=== PATIENT | female | born 1945 | race Caucasian/White ===

== ENCOUNTER 2018-09-13 11:09 | Emergency (ER) | payer MEDICARE ==
[2018-09-13 11:26] VITALS: BP 147/73
--- NOTE | 2018-09-13 11:47 | UC ---
Throat Pain/Nasal Eran HPI - HPI Summary HPI Summary: 73-year-old female comes in with a chief complaint of bilateral eye discharge and redness and sinus congestion with sore throat for the last 2 days. Patient reports this is what happens when she gets a sinus infection. Denies any history of environmental allergies. Throat pain is worse when she swallows. The eyes get better when she cleans them off. No fevers or chills. No cough or chest congestion. - History of Current Complaint Chief Complaint: UCEye Stated Complaint: EYE/SINUSES Time Seen by Provider: 09/13/18 11:30 Pain Intensity: 0 - Allergies/Home Medications Allergies/Adverse Reactions: Allergies Allergy/AdvReac Type Severity Reaction Status Date / Time No Known Allergies Allergy Verified 09/13/18 11:26 Home Medications: Home Medications Escitalopram * [Lexapro *] 20 mg PO DAILY 09/13/18 [History Confirmed 09/13/18] Omeprazole 20 mg PO DAILY 09/13/18 [History Confirmed 09/13/18] Rosuvastatin Calcium 10 mg PO DAILY 09/13/18 [History Confirmed 09/13/18] PMH/Surg Hx/FS Hx/Imm Hx Previously Healthy: Yes Endocrine History: Dyslipidemia GI/ History: Gastroesophageal Reflux - Surgical History Surgical History: Yes Surgery Procedure, Year, and Place: appe, hysterectomy, C-sections, cataract - Family History Known Family History: Positive: Non-Contributory - Social History Alcohol Use: Occasionally Substance Use Type: None Smoking Status (MU): Former Smoker When Did the Patient Quit Smoking/Using Tobacco: 40 yrs ago Review of Systems All Other Systems Reviewed And Are Negative: Yes Constitutional: Positive: Negative Skin: Positive: Negative Eyes: Positive: Drainage, Eye Redness ENT: Positive: Sore Throat, Nasal Discharge, Sinus Congestion, Sinus Pain/ Tenderness Respiratory: Positive: Negative Cardiovascular: Positive: Negative Gastrointestinal: Positive: Negative Motor: Positive: Negative Neurovascular: Positive: Negative Musculoskeletal: Positive: Negative Neurological: Positive: Negative Psychological: Positive: Negative Is Patient Immunocompromised?: No Physical Exam Triage Information Reviewed: Yes Appearance: Well-Appearing, No Pain Distress, Well-Nourished Vital Signs: Initial Vital Signs Temp 99.3 F 09/13/18 11:21 Pulse 72 09/13/18 11:21 Resp 14 09/13/18 11:21 BP 147/73 09/13/18 11:21 Pulse Ox 99 09/13/18 11:21 Vital Signs Reviewed: Yes Eyes: Positive: Conjunctiva Inflamed, Discharge ENT: Positive: Pharyngeal erythema, Nasal congestion, Nasal drainage, TMs normal Neck: Positive: Supple Respiratory: Positive: Lungs clear, Normal breath sounds, No respiratory distress Cardiovascular: Positive: RRR Musculoskeletal Exam: Normal Musculoskeletal: Positive: Strength Intact, ROM Intact Neurological Exam: Normal Neurological: Positive: Alert, Muscle Tone Normal Psychological Exam: Normal Psychological: Positive: Normal Response To Family, Age Appropriate Behavior Skin Exam: Normal Throat Pain/Nasal Course/Dx - Course Course Of Treatment: DISCUSSED VIRAL VERSES BACTERIAL INFECTION AND THE ROLE OF ANTIBIOTICS. THE PATIENT PREFERS TO BE ON ANTIBIOTICS AT THIS TIME. - Differential Dx/Diagnosis Provider Diagnosis: Sinusitis, Conjunctivitis of both eyes Discharge - Sign-Out/Discharge Documenting (check all that apply): Patient Departure All imaging exams completed and their final reports reviewed: No Studies - Discharge Plan Condition: Stable Disposition: HOME Prescriptions: Amoxicillin PO (*) [Amoxicillin 875 MG (*)] 875 mg PO BID #20 tab Tobramycin 0.3% OPHTH.KASSANDRA* 1 drop BOTH EYES Q4H #1 btl Patient Education Materials: Sinusitis (ED), Conjunctivitis (ED) Referrals: Erin RICKS,Aliza Schulz [Primary Care Provider] - Additional Instructions: FOLLOW UP WITH YOUR DOCTOR IF NOT COMPLETELY IMPROVED. GET RECHECKED SOONER IF YOUR CONDITION WORSENS OR ANY QUESTIONS OR CONCERNS. - Billing Disposition and Condition Condition: STABLE Disposition: Home
== END 2018-09-13 11:55 | disposition home or self-care (01) ==
LOC: EDUNIT# → UCEAST 11:09
DX: H11.9 Unspecified disorder of conjunctiva (principal); J32.9 Chronic sinusitis, unspecified; E78.5 Hyperlipidemia, unspecified; K21.9 Gastro-esophageal reflux disease without esophagitis; Z87.891 Personal history of nicotine dependence
CPT/HCPCS: 99212; G0463

== ENCOUNTER 2018-09-29 16:46 | Emergency (ER) | payer MEDICARE ==
[2018-09-29 18:19] VITALS: BP 127/73
--- NOTE | 2018-09-29 18:23 | UC ---
Skin Complaint HPI - HPI Summary HPI Summary: 73 yo female presents with wound to left simental. She tells me that 17 days ago she thinks she was bitten by a bug to the area. Later that day she noticed a small red bump to the area and applied antibiotic ointment. A few days later she was itching it and admits to "picking" at it and it started to bleed. Over the next few days developed a scab that she continued to pick at. She was also outdoors a lot and working outside. About 4 days ago noticed some surrounding redness and had mild pain, but then took an anbx for a tooth infection and since that time the wound has significantly improved. Now she has a fleshy/ hypopigmented area at the site. No pain or drainage. - History of Current Complaint Chief Complaint: UCSkin Time Seen by Provider: 09/29/18 18:23 Stated Complaint: BUG BITE Hx Obtained From: Patient Onset/Duration: Gradual Onset Onset Severity: Mild Current Severity: None Pain Intensity: 0 - Allergy/Home Medications Allergies/Adverse Reactions: Allergies Allergy/AdvReac Type Severity Reaction Status Date / Time No Known Allergies Allergy Verified 09/29/18 18:19 PMH/Surg Hx/FS Hx/Imm Hx Endocrine History: Dyslipidemia GI/ History: Gastroesophageal Reflux Psychological History: Anxiety - Surgical History Surgical History: Yes Surgery Procedure, Year, and Place: appe, hysterectomy, C-sections, cataract - Family History Known Family History: Positive: Non-Contributory - Social History Occupation: Retired Lives: With Family Alcohol Use: Occasionally Substance Use Type: None Smoking Status (MU): Former Smoker When Did the Patient Quit Smoking/Using Tobacco: 40 yrs ago Review of Systems All Other Systems Reviewed And Are Negative: Yes Constitutional: Positive: Negative Skin: Positive: Other - Wound left simental Respiratory: Positive: Negative Cardiovascular: Positive: Negative Neurovascular: Positive: Negative Neurological: Positive: Negative Psychological: Positive: Negative Physical Exam - Summary Physical Exam Summary: GENERAL: NAD. WDWN. No pain distress. SKIN: LEFT anterior simental with 5mm diameter healing wound that is 2-3mm raised with sandpaper like texture. Mixed flesh colored with hypopigmentation. No surrounding erythema or edema. No ulceration. NTTP. No streaking, bleeding, or drainage. CHEST: No accessory muscle use. Breathing comfortably and in no distress. CV: Pulses intact. Cap refill <2seconds NEURO: Alert. PSYCH: Age appropriate behavior. Vital Signs: Initial Vital Signs Temp 97.4 F 09/29/18 18:15 Pulse 78 09/29/18 18:15 Resp 16 09/29/18 18:15 BP 127/73 09/29/18 18:15 Pulse Ox 97 09/29/18 18:15 Course/Dx - Course Course Of Treatment: Suspect keloid given the picking at the wound, sun exposure, and possible recent infection at the site. Advised to apply a small amount of antibiotic ointment and cover the site with a band-aid for 4-5 days and to leave it alone. Try to avoid sun exposure to the area until healed more. - Diagnoses Provider Diagnosis: Keloid scar Discharge - Sign-Out/Discharge Documenting (check all that apply): Patient Departure All imaging exams completed and their final reports reviewed: No Studies - Discharge Plan Condition: Stable Disposition: HOME Patient Education Materials: Chronic Wound Care (ED) Referrals: Erin RICKS,Aliza Schulz [Primary Care Provider] - Additional Instructions: If you develop a fever, shortness of breath, chest pain, new or worsening symptoms - please call your PCP or go to the ED immediately. Apply bacitracin ointment once a day and cover with a band-aid for 4-5 days. Do not pick or scrape the area. - Billing Disposition and Condition Condition: STABLE Disposition: Home
== END 2018-09-29 18:37 | disposition home or self-care (01) ==
LOC: UCEAST 16:46
DX: L91.0 Hypertrophic scar (principal); E78.5 Hyperlipidemia, unspecified; K21.9 Gastro-esophageal reflux disease without esophagitis; F41.9 Anxiety disorder, unspecified; Z87.891 Personal history of nicotine dependence
CPT/HCPCS: 99211; G0463

== ENCOUNTER 2018-10-16 09:06 | Emergency (ER) | payer MEDICARE ==
[2018-10-16 09:23] VITALS: BP 154/89
--- NOTE | 2018-10-16 09:43 | UC ---
Skin Complaint HPI - HPI Summary HPI Summary: percy awoke in night last night with itchy pain behind R ear. has progressed to achey/itchy pain R scalp area, she is sure it's shingles as she has had this in the past with same symptoms. no meds for pain thus far. she has been under stress lately but has not felt ill - History of Current Complaint Chief Complaint: UCSkin Time Seen by Provider: 10/16/18 09:13 Stated Complaint: SKIN COMPLAINT Hx Obtained From: Patient ?: No Onset/Duration: Sudden Onset Onset Severity: Mild Current Severity: Mild Pain Intensity: 4 Location: Discrete Character: Pruritus, Redness, Raised, Painful Aggravating Factor(s): Touch Alleviating Factor(s): Nothing Associated Signs & Symptoms: Positive: Tenderness. Negative: Nausea, Vomiting, Fever, Chills, Drainage Similar Episode/Dx as: shingles - Allergy/Home Medications Allergies/Adverse Reactions: Allergies Allergy/AdvReac Type Severity Reaction Status Date / Time No Known Allergies Allergy Verified 10/16/18 09:16 PMH/Surg Hx/FS Hx/Imm Hx Previously Healthy: Yes Endocrine History: Dyslipidemia GI/ History: Gastroesophageal Reflux Psychological History: Depression - Surgical History Surgical History: Yes Surgery Procedure, Year, and Place: appe, hysterectomy, C-sections, cataract - Family History Known Family History: Positive: Non-Contributory - Social History Occupation: Retired Lives: Alone Alcohol Use: Rare Substance Use Type: None Smoking Status (MU): Former Smoker When Did the Patient Quit Smoking/Using Tobacco: 40 yrs ago Review of Systems All Other Systems Reviewed And Are Negative: Yes Constitutional: Positive: Negative Skin: Positive: Rash Eyes: Positive: Negative. Negative: Blurred Vision, Drainage, Eye Redness, Photophobia ENT: Positive: Negative. Negative: Ear Ache Respiratory: Positive: Negative Cardiovascular: Positive: Negative Neurological: Positive: Negative. Negative: Headache Psychological: Positive: Negative Is Patient Immunocompromised?: No Physical Exam Triage Information Reviewed: Yes Appearance: Well-Appearing, No Pain Distress, Well-Nourished Vital Signs: Initial Vital Signs Temp 97.9 F 10/16/18 09:16 Pulse 70 10/16/18 09:16 Resp 16 10/16/18 09:16 BP 154/89 10/16/18 09:16 Pulse Ox 97 10/16/18 09:16 Vital Signs Reviewed: Yes Eye Exam: Normal Eyes: Positive: Conjunctiva Clear. Negative: Discharge ENT Exam: Normal ENT: Positive: Pharynx normal, TMs normal Neck: Positive: No Lymphadenopathy Respiratory Exam: Normal Cardiovascular Exam: Normal Neurological Exam: Normal Psychological Exam: Normal Skin: Positive: Other - erythemic, swollen, tender area behind R ear extending to scap mild tenderness with palpation R occipital area Course/Dx - Differential Diagnoses - Skin Complaint Differential Diagnoses: Abscess, Cellulitis, Contact Dermatitis, Impetigo, Varicella Zoster, Other - insect bite - Diagnoses Provider Diagnosis: Shingles Discharge - Sign-Out/Discharge Documenting (check all that apply): Patient Departure All imaging exams completed and their final reports reviewed: No Studies - Discharge Plan Condition: Good Disposition: HOME Prescriptions: ValACYclovir (*) [Valtrex 1 GM(*)] 1 gm PO TID #21 tab Patient Education Materials: Shingles (ED) Referrals: Erin RICKS,Aliza Schulz [Primary Care Provider] - 3 Days (if no better) Additional Instructions: start valtrex (antiviral) today and take as prescribed use ibuprofen 600mg every 6 hours with food for pain return here if symptoms worsen at anytime - Billing Disposition and Condition Condition: GOOD Disposition: Home
== END 2018-10-16 09:56 | disposition home or self-care (01) ==
LOC: UCEAST 09:06
DX: B02.9 Zoster without complications (principal); Z87.891 Personal history of nicotine dependence
CPT/HCPCS: 99212; G0463

== ENCOUNTER 2019-04-19 12:35 | Day surgery (SDC) | payer MEDICARE ==
[~2019-04-19 12:35] MED LIST: Acetaminophen TAB* 325 MG PO PRN; Buffered Lidocaine 1% SYRIN* 1 ML/SYRINGE INTRADERM ONE
[2019-04-19] MEDS ORDERED: Midazolam* 1 MG/ML 2 ML VIAL (2 MG) ONE (14:45)
[2019-04-19] MEDS ORDERED: Midazolam* 1 MG/ML 5 ML VIAL (5 MG) ONE (15:01)
[2019-04-19] MEDS ORDERED: Cyclopentolate 1% OPTH.SOL* 2 ML BTL ONE (15:09)
[2019-04-19] MEDS ORDERED: Proparacaine 0.5% OPHTH.SOL* 15 ML BTL ONE (15:09)
[2019-04-19] MEDS ORDERED: Phenylephrine OPHTH SOL 2.5%* 2 ML ONE (15:09)
[2019-04-19] MEDS ORDERED: Neomycin/Polymy/Dex OPTH.SUSP* MAXITROL 0.1% 5 ML ONE (15:09)
[2019-04-19] MEDS ORDERED: Povidone Iodine 5% OPTH* 30 ML BTL ONE (15:09)
[2019-04-19] MEDS ORDERED: Lidocaine 1% MPF ** 5 ML VIAL ONE (15:09)
[2019-04-19] MEDS ORDERED: Ketorolac 0.5% OPHTH (NF) 0.5 % 5 ML BTL ONE (15:09)
[2019-04-19] MEDS ORDERED: acetaZOLAMIDE TAB* 250 MG ONE (15:09)
[2019-04-19] MEDS ORDERED: Lidocaine 2% w/ EPI 1:200,000* 20 ML SDV VIAL ONE (15:09)
[2019-04-19 16:19] VITALS: BP 130/64
--- NOTE | 2019-04-19 23:09 | OP ---
DATE OF OPERATION: 04/19/19 [facility] DATE OF : 47 SURGEON: Speedy Villafuerte M.D. PREOPERATIVE DIAGNOSIS: Cataract, right. POSTOPERATIVE DIAGNOSIS: Cataract, right. OPERATIVE PROCEDURE: Extracapsular cataract extraction with intraocular lens implant, right eye. DESCRIPTION OF PROCEDURE: The patient was brought to the operating room after being given 1/2% Alcaine with epinephrine drops in the preoperative area. The eye was prepped and draped in the usual sterile fashion. Sterile drape and eyelid speculum were placed. Again, topical 1/2% Alcaine with epinephrine was given. A paracentesis incision was made at the 9 o'clock position with the No.75 blade. Clear cornea incision 2.2 x 2.2-mm was created at the 12 o'clock position starting at the anterior limbus using the 2.2-mm keratome. The anterior chamber was irrigated with 0.4 mL of 1% non-preservative intracameral lidocaine and filled with DisCoVisc. A capsulorrhexis was completed using the cystotome and the Utrata forceps. Hydrodissection was performed with balanced salt solution. The lens nucleus was removed with the Phacoemulsification handpiece without incident. Cortex was removed with the irrigation-aspiration handpiece. The capsular bag was re-inflated using DisCoVisc and an [id number] 25.5 implant was inserted with the shooter. The pupil is only 3 mm and had some posterior synechia. The synechia were freed and then a Malyugin ring was used to dilate the pupil prior to capsulorrhexis and removed after insertion of the lens. The irrigation-aspiration handpiece was used to remove all residual DisCoVisc. The eye was refilled with balanced salt solution and the wound checked and found to be watertight. Topical Maxitrol drops were given. Indication for complex cataract surgery: Pupil abnormalities requiring pupil dilation device. [id number]/CPS #: [id number] [facility]ITALSharifa
== END 2019-04-19 15:42 | disposition home or self-care (01) ==
LOC: OREAST 12:35
PROVIDERS: ATTEND Specialist
DX: H25.811 Combined forms of age-related cataract, right eye (principal); H21.561 Pupillary abnormality, right eye; H40.031 Anatomical narrow angle, right eye; G43.809 Other migraine, not intractable, without status migrainosus; E78.00 Pure hypercholesterolemia, unspecified; F41.9 Anxiety disorder, unspecified; E78.5 Hyperlipidemia, unspecified
CPT/HCPCS: A9270-GY; J2250; V2632